=== PATIENT | male | born 1950 | race Caucasian/White ===

== ENCOUNTER → 2018-12-30 | Outpatient (CLI) | payer MEDICARE, BC ==
--- NOTE | 2018-12-30 08:53 | RAD ---
Pelvis one view INDICATION: M 25.562 IMPRESSION: Mild osteoarthrosis of the hips. No acute process. Electronically signed by: Kb De Santiago MD 12/30/2018 8:50 AM CDT
--- NOTE | 2018-12-30 08:54 | RAD ---
Left knee 4 views INDICATION: M 25.562 IMPRESSION: There is a lucency in the medial tibial plateau most likely subchondral cysts. There is moderate medial tibiofemoral joint space narrowing indicating osteoarthrosis. Small joint effusion. Mild lateral patellar tracking. Mild patellofemoral osteophyte formation Electronically signed by: Kb De Santiago MD 12/30/2018 8:51 AM CDT
--- NOTE | 2018-12-30 10:44 | RAD ---
4 view right knee Indication: PAIN IN RIGHT KNEE Comparison: None. Impression: Severe narrowing medial knee compartment with mild narrowing lateral and patellofemoral compartment. Tiny joint line osteophytes. Small knee effusion. No acute fracture. Scattered vascular calcifications. Electronically signed by: Francisco Allen MD 12/30/2018 10:41 AM CDT
== END ==
LOC: RAD 08:07
PROVIDERS: ATTEND Orthopaedic Surgery
DX: Z01.818 Encounter for other preprocedural examination (principal); M16.0 Bilateral primary osteoarthritis of hip; M25.861 Other specified joint disorders, right knee; M25.862 Other specified joint disorders, left knee; M25.761 Osteophyte, right knee; M25.762 Osteophyte, left knee; M25.461 Effusion, right knee

== ENCOUNTER → 2019-01-21 | Outpatient (CLI) | payer MEDICARE, BC ==
--- NOTE | 2019-01-21 10:16 | RAD ---
EXAM DESCRIPTION: Chest,2 Views CLINICAL HISTORY: 68 years Male, HYPERTENSION COMPARISON: None. IMPRESSION: Heart size and pulmonary vascularity are within normal limits. Atherosclerosis in the thoracic aorta. Elevation of the right hemidiaphragm. There is no airspace consolidation, pleural effusion, or pneumothorax. No acute osseous abnormality. Electronically signed by: Prateek Urias MD 01/21/2019 10:14 AM CDT
== END ==
LOC: LAB.O 08:38
PROVIDERS: ATTEND Family Medicine
DX: I10 Essential (primary) hypertension (principal); I70.0 Atherosclerosis of aorta; J98.6 Disorders of diaphragm

== ENCOUNTER → 2019-07-03 | Outpatient (CLI) | payer MEDICARE, BC ==
--- NOTE | 2019-07-03 13:09 | RAD ---
4 radiographs left knee Indication: PAIN IN LEFT KNEE Comparison: None. Impression: Moderate narrowing medial knee compartment. Mild narrowing lateral and patellofemoral compartments. Moderate size knee effusion. No acute fracture. Electronically signed by: Francisco Allen MD 07/03/2019 1:07 PM CDT
== END ==
LOC: RAD 09:12
PROVIDERS: ATTEND Orthopaedic Surgery
DX: M25.862 Other specified joint disorders, left knee (principal); M25.562 Pain in left knee

== ENCOUNTER 2019-08-04 05:05 | Day surgery (SDC) | payer MEDICARE, BC ==
[2019-08-04] MEDS ORDERED: MOXIFLOXACIN HCL (OPHTH) 1 DROP DROPS ONE (05:47)
[2019-08-04] MEDS ORDERED: PROPARACAINE 0.5% OPHTH SOL 15 ML BTTL ONE (05:47)
[2019-08-04] MEDS ORDERED: TROP 1%/CYCLOPEN 1%/PHENYL 2% DROPS ONE (05:47)
[2019-08-04] MEDS ORDERED: MIDAZOLAM INJ 2 MG/2 ML VIAL ONE (06:13)
[2019-08-04] MEDS ORDERED: LIDOCAINE 1% MPF 2 ML VIAL INJ ONE (07:29)
[2019-08-04] MEDS ORDERED: MOXIFLOXACIN HCL (OPHTH) 1 DROP DROPS RIGHT_EYE ONE ×3 (07:36→07:46)
[2019-08-04] MEDS ORDERED: BRIMONIDINE 0.2% OPHTH DROPS RIGHT_EYE ONE ×3 (07:37→07:46)
[2019-08-04] MEDS ORDERED: DEXAMETHASONE 0.1% OPHTH SOL 1 DROP RIGHT_EYE ONE ×3 (07:37→07:46)
[2019-08-04] MEDS ORDERED: TOBRAMYCIN SULF 0.3 % OPHT SOL 1 DROP RIGHT_EYE ONE ×3 (07:37→07:46)
== END 2019-08-04 08:33 | disposition home or self-care (01) ==
LOC: AMB 05:05
PROVIDERS: ATTEND Ophthalmology
DX: H25.11 Age-related nuclear cataract, right eye (principal); I10 Essential (primary) hypertension; Z79.899 Other long term (current) drug therapy
CPT/HCPCS: 00142; 66984; J2250

== ENCOUNTER 2019-09-22 05:29 | Day surgery (SDC) | payer MEDICARE, BC ==
[2019-09-22] MEDS: PROPARACAINE 0.5% OPHTH SOL 15 ML BTTL LEFT_EYE ONE ×2 (10:16→10:35)
[2019-09-22] MEDS: LIDOCAINE 1% 2 ML VIAL INJ ONE ×2 (10:16→10:35)
[2019-09-22] MEDS: MOXIFLOXACIN HCL (OPHTH) 1 DROP DROPS BOTH_EYES ONE ×2 (10:16→10:35)
[2019-09-22] MEDS: TROP 1%/CYCLOPEN 1%/PHENYL 2% DROPS LEFT_EYE ONE ×2 (10:18→10:35)
[2019-09-22] MEDS: DEXAMETHASONE 0.1% OPHTH SOL 1 DROP LEFT_EYE ONE ×2 (10:18→10:35)
[2019-09-22] MEDS: BRIMONIDINE 0.2% OPHTH DROPS LEFT_EYE ONE ×2 (10:19→10:35)
[2019-09-22] MEDS ORDERED: MIDAZOLAM INJ 2 MG/2 ML VIAL ONE ×2 (10:34→10:39)
== END 2019-09-22 13:20 | disposition home or self-care (01) ==
LOC: AMB 05:29
PROVIDERS: ATTEND Ophthalmology
DX: H25.11 Age-related nuclear cataract, right eye (principal); I10 Essential (primary) hypertension
CPT/HCPCS: 00142; 66984; J2250

== ENCOUNTER → 2019-10-07 | Outpatient (CLI) | payer MEDICARE, BC | LOC: LAB.O 11:53 | PROVIDERS: ATTEND Orthopaedic Surgery | DX: Z01.818 Encounter for other preprocedural examination (principal) ==

== ENCOUNTER → 2020-08-03 | Outpatient (CLI) | payer MEDICARE, BC | LOC: YCFC.O 09:42 | PROVIDERS: ATTEND Family Medicine | DX: I10 Essential (primary) hypertension (principal); E78.5 Hyperlipidemia, unspecified; Z12.5 Encounter for screening for malignant neoplasm of prostate; R53.83 Other fatigue | CPT/HCPCS: 36415; 80053; 80061; 81001; 84443; 85025; G0103 ==